=== PATIENT | male | born 1995 | race Caucasian/White ===

== ENCOUNTER 2023-12-26 08:02 | Emergency (ER) | payer OTHER | END 2023-12-26 08:40 | disposition home or self-care (01) | LOC: VM.ED 08:02 | DX: S62.244A Nondisplaced fracture of shaft of first metacarpal bone, right hand, initial encounter for closed fracture (principal); Z91.048 Other nonmedicinal substance allergy status; W29.8XXA Contact with other powered hand tools and household machinery, initial encounter | CPT/HCPCS: 73120-RT; 99283 ==